=== PATIENT | male | born 1980 | race Caucasian/White ===

== ENCOUNTER 2017-08-11 15:48 | Emergency (ER) | payer MEDICAID ==
[~2017-08-11] VITALS: Ht 175.3 cm; Wt 72.6 kg
[~2017-08-11 15:48] MED LIST: CIPRO 500MG TA500 MG PO; ERY-TAB 250MG250 MG OR; ERYTHROMYCIN 2250 MG OR; FLEXERIL10 MG PO; FLONASE 50 MCG16 GM; GABAPENTIN300 M1 PO; GABAPENTIN600 MG PO; HYDROCODONE1 TABLET PO; IBUPROFEN800 MG PO; KEFLEX 500MG.500 MG PO; LODINE400 MG PO; LORTAB 5/500 501 TAB PO; MEDROL 4MG. DOSE4 MG PO; NAPROSYN 500MG500 MG PO; NOMEDS *; NOMEDS XX; NORCO 325 MG-51 TAB PO; ROBAXIN-750750 MG PO; SEPTRA DS 800 M1 TAB PO; TESSALON PERLE100 MG PO; TIZANIDINE HCL 44 MG PO; TRAMADOL 50MG T50 MG PO; TRAMADOL HYDROC50 M1 PO; VICODIN 5/500 T1 TAB PO; VOLTAREN75 MG PO
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
--- OUTSIDE RECORDS SUMMARY | 2017-08-11 16:47 | External Medical Summary Rpt | CCD ---
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 Name Role Phone [facility] Unavailable Unavailable INC, [facility] Unavailable Unavailable HOSPITAL, [facility] Unavailable Unavailable HOSPITAL P, [facility], Unavailable Unavailable [facility] Unavailable Unavailable IM[facility]ING [facility], [facility], Unavailable Unavailable PLL[facility], [facility] Purpose Continuity of Care Document - 08-18-2014 through 2016 Problems Code Diagnosis DOS Provider Status J00 ACUTE 03-09-2017 [facility] ITIS COMMON INC COLD Z720 TOBACCO USE 03-09-2017 [facility] INC [id number] STRAIN 10-06-2016 [facility] TENDON LOW BACK INITIAL Z0289 ENCOUNTER 08-21-2016 [facility] OTHER [facility] ADMINISTRAT INC ANJUM EXAMINATION S B999 UNSPECIFIED 03-10-2016 [facility] INFECTIOUS PHYSICIANS DISEASE GROUP [id number] PAIN IN 01-22-2016 [facility] LEFT [facility]ICAL SHOULDER [facility] M5032 OTH CERV 01-22-2016 [facility] DISC MEDICAL DEGENERATIO IMAGING ASS N MID-CERVICA L REGION [id number] OTHER 08-18-2015 [facility] TENOSYNOVIT IS LEFT HAND [id number] PAIN IN 08-18-2015 [facility] R2232 LOCALIZED 08-18-2015 [facility] SWELLING MED[facility] MASS AND IMAGING ASS LUMP LEFT UPPER LIMB [id number] PAIN IN 06-30-2015 [facility] UNSPECIFIED [facility]OS[facility] SHOULDER INC 95036 PAIN IN 06-09-2015 [facility] REGION 63880 OTHER 06-09-2015 [facility] HOSPITAL TO SHOULDER JOINT 4019 UNSPECIFIED 01-06-2015 [facility] P N 9592 INJURY 12-25-2014 [facility] OTHER&UNSPE PHYSICIANS CIFIED GROUP SHOULDER&UP PER ARM 7231 CERVICALGIA 11-21-2014 [facility] INC 7840 HEADACHE 11-21-2014 [facility] V571 OTHER 11-21-2014 [facility] PHYSICAL [facility]OS[facility] THERAPY INC V140 PERSONAL 11-13-2014 [place] HISTORY OF [facility] ALLERGY TO [facility] P [place] 77291 MIGRAINE 10-19-2014 [place] [facility] W[facility] P STATUS MIGRAINOSUS V1582 PERS HX 10-19-2014 [place] TOBACCO USE [facility] 6019 UNSPECIFIED 08-19-2014 [facility] PROSTATITIS GROUP 5950 ACUTE 08-18-2014 [facility] CYSTITIS [facility] P 14727 DISPLCMT 08-18-2014 [facility] LUMBAR MEDICAL INTERVERT IMAGING ASS 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 7241 PAIN IN 08-18-2014 [facility] THORACIC [facility] SPINE [facility] 7242 LUMBAGO 08-18-2014 [facility] Medications Na ND Rx Da Fi Fi Am Da Di Ph RX Ph St me C No te ll ll ou ys ag ar # ys at s nt no ma ic us Or [...] 5 29 PH CE AR TA MA MS CY NO PH OF EN CY NT 5- HI 32 AN 5 A IN C Encounters Encounter Start End Date Code Location Performer Type Date [facility] - 7 7 [facility] OUTPATI[facility] - 6 6 [facility] - [facility] - 5 5 [facility] - [facility] 5 [facility] - 5 5 [facility] - 5 5 [facility] - 4 4 [facility]
--- OUTSIDE RECORDS SUMMARY | 2017-08-11 16:47 | External Medical Summary Rpt | CCD ---
Author Author , JUAN LUIS MCKNIGHT Address Unknown Phone [email or web address] Care Team Providers Care Student Success Counselor Name Role Phone [facility] Unavailable Unavailable INC, [facility] Unavailable [facility]available [facility]PITAL, [facility] Unavailable [facility]available HOSPITAL P, [facility], Unavailable Unavailable [facility] Unavailable Unavailable [facility]ING [facility], [facility], Unavailable Unavailable PLL[facility], [facility] Purpose Continuity of Care Document - 08-18-2014 through 2016 Problems Code Diagnosis DOS Provider Status J00 ACUTE 03-09-2017 [facility] ITIS COMMON INC COLD Z720 TOBACCO USE 03-09-2017 [facility] INC [id number] STRAIN 10-06-2016 [facility] TENDON LOW BACK INITIAL Z0289 ENCOUNTER 08-21-2016 [facility] ADMINISTRAT INC ANJUM EXAMINATION S B999 UNSPECIFIED 03-10-2016 [facility] INFECTIOUS PHYSICIANS DISEASE GROUP [id number] PAIN IN 01-22-2016 [facility] SH[facility] M5032 OTH CERV 01-22-2016 [facility] DISC MEDICAL DEGENERATIO IMAGING ASS N MID-CERVICA L REGION [id number] OTHER 08-18-2015 [facility] TENOSYNOVIT IS LEFT HAND [id number] PAIN IN 08-18-2015 [facility] R2232 LOCALIZED 08-18-2015 [facility] LEFT UPPER LIMB A23269 PAIN IN 06-30-2015 [facility] UNSPECIFIED [facility] HOS[facility] SHOULDER INC 90368 PAIN IN 06-09-2015 [facility] REGION 68476 OTHER 06-09-2015 [facility] HOSPITAL TO SHOULDER JOINT 4019 UNSPECIFIED 01-06-2015 [facility] P N 9592 INJURY 12-25-2014 [facility] OTHER&UNSPE PHYSICIANS CIFIED GROUP SHOULDER&UP PER ARM 7231 CERVICALGIA 11-21-2014 [facility] INC 7840 HEADACHE 11-21-2014 [facility] PHYSICIANS GROUP V571 OTHER 11-21-2014 [facility] PHYSICAL [facility] THERAPY INC V140 PERSONAL 11-13-2014 [facility] HISTORY OF [facility] ALLERGY TO [facility] P [place] [address]9076 MIGRAINE 10-19-2014 [place] P STATUS MIGRAINOSUS V1582 PERS HX 10-19-2014 [place] TOBACCO USE [facility] 6019 UNSPECIFIED 08-19-2014 [facility] PHYSICIANS PROSTATITIS GROUP 5950 ACUTE 08-18-2014 [facility] CYSTITIS [facility] P 46822 DISPLCMT 08-18-2014 [facility] LUMBAR MED[facility] INTERVERT IMAGING ASS 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 7241 PAIN IN 08-18-2014 [facility] THORACIC [facility] SP[facility] 7242 LUMBAGO 08-18-2014 [facility] Medications Na ND Rx [...] 5 29 PH CE AR TA MA MN CY NO PH OF EN CY NT 5- HI 32 AN 5 A IN C Encounters Encounter Start End Date Code Location Performer Type Date [facility]PITAL [facility] - 7 7 [facility] RO[facility] - 7 7 [facility] RO[facility] - 6 6 [facility] - 5 5 [facility] - 5 5 [facility]SE - 5 5 [facility]SE - 5 5 [facility] ROSE - 5 5 [facility] ROSE - 4 4 [facility]
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
--- OUTSIDE RECORDS SUMMARY | 2017-08-11 16:48 | External Medical Summary Rpt | CCD ---
Demographics Preferred Language Ethiopian Marital Status Unknown Adventism Affiliation Unknown Race Unknown Ethnic Group Unknown Author Author , JUAN LUIS Organization JUAN LUIS Address Unknown Phone [email or web address] Immunization Name Date Rout CVX Reac Dose Comm Prov Is Faci e tion ent ider Refu lity Give sed n Td 04- 9 999 Hist H149 No H149 (carrie 5-19 ori lt), 96 al Info adso rmat rbed ion - Sour ce Unsp ecif ied
--- OUTSIDE RECORDS SUMMARY | 2017-08-11 16:48 | External Medical Summary Rpt | CCD ---
Demographics Preferred Language Burmese Marital Status Unknown Quaker Affiliation Unknown Race Unknown Ethnic Group Unknown Author Author , JUAN LUIS Organization JUAN LUIS Address Unknown Phone [email or web address] Immunization Name Date Rout CVX Reac Dose Comm Prov Is Faci e tion ent ider Refu lity Give sed n Td 04- 9 999 Hist H149 No H149 (carrie 5-19 ori lt), 96 al Info adso rmat rbed ion - Sour ce Unsp ecif ied
--- OUTSIDE RECORDS SUMMARY | 2017-08-11 16:48 | External Medical Summary Rpt ---
Author Author [employer] Production, JUAN LUIS Production Organization [facility] [employer] Address Unknown Phone Unavailable Results Influenza virus A+B Ag [Presence] in Unspecified specimen Observa Value Referen Units Interpr Notes Date tion ce etation Range Influen NOT NOT No No No Mar 09 za DETECTE DETECTD informa informa informa 2017 virus A D tion in tion in tion in 12:27 Ag source source source PM [Presen data data data ce] in Unspeci fied specime n INFLUEN NOT NOT No No LOT # Mar 09 ZA B DETECTE DETECTD informa informa N/A EXP 2017 ANTIGEN D tion in tion in DATE 12:27 source source N/A PM data data Streptococcus pyogenes Ag [Presence] in Unspecified specimen Observa Value Referen Units Interpr Notes Date tion ce etation Range Strepto NOT NOTDETE No No LOT # Mar 09 coccus DETECTE CTED informa informa N/A EXP 2017 pyogene D tion in tion in DATE 12:27 s Ag source source N/A PM [Presen data data ce] in Unspeci fied specime n
--- NOTE | 2017-08-11 17:37 | [facility] Report ---
History of Present Issue Date/Time Seen by Provider 08/11/17 8146 Visit Reason Pt arrived:Walked Presenting Problem:RUNNY NOSE X 2 DAYS Location if Accident: Onset of symptoms date/time:/ or onset unknown for:MEDICAL HX UNKNOWN Have you (or family members/close friends) recently traveled outside the [place]? N If Yes, where/when: Have you had exposure to infectious disease within the past month? TB? Other? Specify: c/o fever 101 yesterday w/ bodyaches, chills, rhinorrhea, nasal congestion, sore throat. Tylenol cold and flu day/night has helped. No fever today but still doesn't feel well. Missed work yesterday and today "so I need to see what is going on because I can't keep missing". No known sick contacts. No flu vaccine this season. Source patient Exam Limitations no limitations ALLERGIES Coded Allergies: penicillin G (Mild, 08/21/16) History Medical History General CAD? No Angina: No DE: No Hypertension? No Hyperlipidemia? No CHF? No DVT? No PE? No COPD? No Asthma? No Anemia? No GERD? No Gastric ulcers? No GI Bleed? No Hernia? No Thyroid Problems? No Hypothyroidism? No CVA? No Seizures? No Diabetes? No Renal Insuffiency? No UTI? No Stones? No BPH? No GB Disease: No Nephritic Syndrome? No Asplenia? No Hepatitis? No Sickle Cell Disease? No Arthritis? No Migraines? No Cataracts? No Glaucoma? No MRSA? No HIV? No TB? No Anxiety? No Depression? No Cancer? No More? No Immunization HX DT/Tetanus 06-17-06 Surgical Hx Previous Surgery?Y WARTS REMOVED FROM [facility] Social History Smoking Hx Smoker: Never Smoker Tobacco: No Packs/day N/A Alcohol Alcohol: Yes Review of Systems All Other Systems Reviewed and Negative Constitutional see HPI, malaise Eyes denies drainage ENT see HPI. denies: ear pain, throat swelling. Respiratory cough (nonprod), denies shortness of breath, denies wheezing Cardiovascular denies chest pain Gastrointestinal denies no symptoms reported Skin denies rash Psychiatric/Neurological denies headache Physical Exam Vital Signs Vital Signs Date Time Temp Pulse Resp B/P Pulse O2 O2 Flow FiO2 Ox Delivery Rate 08/11 1610 97.9 117 20 116/70 95 General Appearance normal appearance, no apparent distress Eye Exam - bilateral eye normal exam Ear, Nose, Throat normal ENT inspection (x/ nasal congestion) Neck non-tender, supple Respiratory Status Yes: trachea midline, chest symmetrical. No: respiratory distress, use of accessory muscles, pain on inspiration, pain on expiration, productive cough, non productive cough. Lung Sounds anterior: lungs clear. posterior: lungs clear. bilateral: lungs clear. Cardiovascular regular rate/rhythm, no peripheral edema, no murmur Neurologic alert, oriented x 3 Mental status normal mood/affect Skin normal color, warm/dry Lymphatic no adenopathy Medical Decision Making LABS/Meds/Orders Pt receiving controlled substance in ED? No Results/Orders Laboratory Tests 08/11/171739: Influenza Type A Ag NOT DETECTED, Influenza Type B Ag NOT DETECTED Orders Procedure Date/time Status [facility] FLU A,B 08/11 1740 Complete Departure Departure Time of Disposition 1826 Disposition DC Home or Self Care(routine) Clinical Impression Primary Impression: Upper respiratory virus Condition STABLE Referrals NO REFERRAL See primary care or return to [facility] IMMEDIATELY for new or worsening symptoms OR no noticeable improvement over the next 48-72 hours. 911 for difficulty breathing or swallowing. Patient Instructions DI for Viral Upper Respiratory Infection -- Adult Additional Instructions * No sign of bacterial infection. Likely viral. Virus can take 7-14 days to run their course * Monitor Temp. Tylenol every 4 hours as needed no more then 5 times a day or 4000mg in 24 hours and/or ibuprofen every 6 hours as needed no more then 3200mg in 24 hours (as long as your primary care doctor has told you that it is ok to take both) for fever/aches/pain. ER if fever no less than 101 despite tylenol and ibuprofen * Encourage fluids, water, gatorade, powerade, pedialyte if /toddler/child * warm salt water gargles * warm fluids * sore throat lozenges * sleep elevated * humidifier/vaporizer * Bromfed may cause drowsiness. Know how it effects you (or your child) before driving, caring for small children, or sending your child to school. No other antihistamines/allergy medications while taking bromfed. Discharge Counseling Counseled pt/family regarding diagnosis, test results, medications/RX, home care, follow up needs Prescriptions Current Visit Scripts D-METHORPHAN HB/P-EPD HCL/BPM (Bromfed Dm Cough Syrup) 10 ML PO QIDP PRN cough #240 ML at 1829
--- NOTE | 2017-08-11 17:37 | Urgent Treatment Center Report ---
History of Present Issue Date/Time Seen by Provider 08/11/17 9776 Visit Reason Pt arrived:Walked Presenting Problem:RUNNY NOSE X 2 DAYS Location if Accident: Onset of symptoms date/time:/ or onset unknown for:MEDICAL HX UNKNOWN Have you (or family members/close friends) recently traveled outside the [place]? N If Yes, where/when: Have you had exposure to infectious disease within the past month? TB? Other? Specify: c/o fever 101 yesterday w/ bodyaches, chills, rhinorrhea, nasal congestion, sore throat. Tylenol cold and flu day/night has helped. No fever today but still doesn't feel well. Missed work yesterday and today "so I need to see what is going on because I can't keep missing". No known sick contacts. No flu vaccine this season. Source patient Exam Limitations no limitations ALLERGIES Coded Allergies: penicillin G (Mild, 08/21/16) History Medical History General CAD? No Angina: No AR: No Hypertension? No Hyperlipidemia? No CHF? No DVT? No PE? No COPD? No Asthma? No Anemia? No GERD? No Gastric ulcers? No GI Bleed? No Hernia? No Thyroid Problems? No Hypothyroidism? No CVA? No Seizures? No Diabetes? No Renal Insuffiency? No UTI? No Stones? No BPH? No GB Disease: No Nephritic Syndrome? No Asplenia? No Hepatitis? No Sickle Cell Disease? No Arthritis? No Migraines? No Cataracts? No Glaucoma? No MRSA? No HIV? No TB? No Anxiety? No Depression? No Cancer? No More? No Immunization HX DT/Tetanus 06-17-06 Surgical Hx Previous Surgery?Y WARTS REMOVED FROM [facility] Social History Smoking Hx Smoker: Never Smoker Tobacco: No Packs/day N/A Alcohol Alcohol: Yes Review of Systems All Other Systems Reviewed and Negative Constitutional see HPI, malaise Eyes denies drainage ENT see HPI. denies: ear pain, throat swelling. Respiratory cough (nonprod), denies shortness of breath, denies wheezing Cardiovascular denies chest pain Gastrointestinal denies no symptoms reported Skin denies rash Psychiatric/Neurological denies headache Physical Exam Vital Signs Vital Signs Date Time Temp Pulse Resp B/P Pulse O2 O2 Flow FiO2 Ox Delivery Rate 08/11 1610 97.9 117 20 116/70 95 General Appearance normal appearance, no apparent distress Eye Exam - bilateral eye normal exam Ear, Nose, Throat normal ENT inspection (x/ nasal congestion) Neck non-tender, supple Respiratory Status Yes: trachea midline, chest symmetrical. No: respiratory distress, use of accessory muscles, pain on inspiration, pain on expiration, productive cough, non productive cough. Lung Sounds anterior: lungs clear. posterior: lungs clear. bilateral: lungs clear. Cardiovascular regular rate/rhythm, no peripheral edema, no murmur Neurologic alert, oriented x 3 Mental status normal mood/affect Skin normal color, warm/dry Lymphatic no adenopathy Medical Decision Making LABS/Meds/Orders Pt receiving controlled substance in ED? No Results/Orders Laboratory Tests 08/11/171739: Influenza Type A Ag NOT DETECTED, Influenza Type B Ag NOT DETECTED Orders Procedure Date/time Status [facility] FLU A,B 08/11 1740 Complete Departure Departure Time of Disposition 1826 Disposition DC Home or Self Care(routine) Clinical Impression Primary Impression: Upper respiratory virus Condition STABLE Referrals NO REFERRAL See primary care or return to [facility] IMMEDIATELY for new or worsening symptoms OR no noticeable improvement over the next 48-72 hours. 911 for difficulty breathing or swallowing. Patient Instructions DI for Viral Upper Respiratory Infection -- Adult Additional Instructions * No sign of bacterial infection. Likely viral. Virus can take 7-14 days to run their course * Monitor Temp. Tylenol every 4 hours as needed no more then 5 times a day or 4000mg in 24 hours and/or ibuprofen every 6 hours as needed no more then 3200mg in 24 hours (as long as your primary care doctor has told you that it is ok to take both) for fever/aches/pain. ER if fever no less than 101 despite tylenol and ibuprofen * Encourage fluids, water, gatorade, powerade, pedialyte if /toddler/child * warm salt water gargles * warm fluids * sore throat lozenges * sleep elevated * humidifier/vaporizer * Bromfed may cause drowsiness. Know how it effects you (or your child) before driving, caring for small children, or sending your child to school. No other antihistamines/allergy medications while taking bromfed. Discharge Counseling Counseled pt/family regarding diagnosis, test results, medications/RX, home care, follow up needs Prescriptions Current Visit Scripts D-METHORPHAN HB/P-EPD HCL/BPM (Bromfed Dm Cough Syrup) 10 ML PO QIDP PRN cough #240 ML at 182
[2017-08-11] MEDS ORDERED: BROMFED DM COU118 ML PO (18:28)
[2017-08-11 18:29] VITALS: BP 116/74
[2017-08-29] MEDS ORDERED: ZITHROMAX Z-PA250 M2 PO (16:52)
[2017-08-29] MEDS ORDERED: FLONASE ALLERG9.9 ML NS (16:52)
== END 2017-08-11 18:32 | disposition home or self-care (01) ==
LOC: UTC 15:48
DX: J01.00 Acute maxillary sinusitis, unspecified (principal)